=== PATIENT | female | born 1965 ===

== ENCOUNTER 2020-08-24 09:20 | Emergency (ER) | payer BC ==
--- NOTE | 2020-08-24 09:22 | EDM.PDOC ---
ED HPI GENERAL MEDICAL PROBLEM - General Stated Complaint: back pian and rash Time Seen by Provider: 08/24/20 09:21 Source of Information: Reports: Patient History Limitations: Reports: No Limitations - History of Present Illness INITIAL COMMENTS - FREE TEXT/NARRATIVE: 54-year-old female no past medical history presents for back pain and rash. Patient states that for the last 4 days she has had what feels like a pulled muscle pain in her left middle back. It radiates to her side but not her abdomen. Yesterday she noted a couple of lesions on the back that are red and painful to touch. Her pain is worse when she is bending or touching the skin. She denies any hematuria, dysuria, chest pain, shortness of breath, abdominal pain, nausea, vomiting, fevers. She denies any history of heavy lifting or injury. She has been taking muscle relaxants that help her sleep but do not particularly help the pain. back Pain Score (Numeric/FACES): 3 - Related Data Allergies Allergy/AdvReac Type Severity Reaction Status Date / Time No Known Allergies Allergy Verified 08/24/20 09:34 Home Meds: Home Meds Acyclovir 800 mg PO ASDIRECTED 7 Days #35 tablet 08/24/20 [Rx] oxyCODONE HCl/Acetaminophen [Percocet 10-325 mg Tablet] 0.5 - 1 each PO Q4H #18 tablet 08/24/20 [Rx] ED ROS GENERAL - Review of Systems Review Of Systems: Comprehensive ROS is negative, except as noted in HPI. ED EXAM, GENERAL - Physical Exam Exam: See Below Exam Limited By: No Limitations General Appearance: Alert, WD/WN, No Apparent Distress Ears: Hearing Grossly Normal Throat/Mouth: Normal Voice, No Airway Compromise Head: Atraumatic, Normocephalic Neck: Normal Inspection, Supple Respiratory/Chest: No Respiratory Distress, Lungs Clear, Normal Breath Sounds, No Accessory Muscle Use Cardiovascular: Normal Peripheral Pulses, Regular Rate, Rhythm Back Exam: Normal Inspection, Other (a few scattered lesions on left middle back that are erythematous, blanching, one with a couple of small blistering/vesicular lesions). No: Vertebral Tenderness Extremities: Normal Inspection Neurological: Alert, Normal Cognition, Normal Gait Psychiatric: Normal Affect, Normal Mood Skin Exam: Warm, Dry, Intact, Normal Color Course - Vital Signs Last Recorded V/S: Last Vital Signs Temp 96.6 F L 08/24/20 09:29 Pulse 108 H 08/24/20 09:29 Resp 17 08/24/20 09:29 BP 131/80 08/24/20 09:29 Pulse Ox 97 08/24/20 09:29 - Orders/Labs/Meds Meds: Medications Discontinued Medications Generic Name Dose Route Start Last Admin Trade Name John PRN Reason Stop Dose Admin Acyclovir 800 mg 08/24/20 09:47 Acyclovir 200 Mg Cap PO 08/24/20 09:48 ONETIME ONE Oxycodone/Acetaminophen 1 tab 08/24/20 09:47 Acetaminophen/Oxycodone 325-10 Mg Tab PO 08/24/20 09:48 ONETIME ONE - Re-Assessments/Exams Free Text/Narrative Re-Assessment/Exam: 08/24/20 09:53 Patient symptoms are most consistent with shingles infection. There is some diagnostic uncertainty as her clinical picture does not 100% fit with shingles infection. She has never had shingles in the past but she did have chickenpox as a child. Explained to patient that we will treat for shingles infection with antivirals and pain medication but that if symptoms are worsening that she should follow-up either back in the emergency department or with a primary care physician for reassessment. Discussed doing urine studies to look for hematuria to rule out kidney stone but patient declines. Departure - Departure Time of Disposition: 09:53 Disposition: Home, Self-Care 01 Condition: Good Clinical Impression: Shingles Qualifiers: Herpes zoster complications: without complications Qualified Code(s): B02.9 - Zoster without complications - Discharge Information Prescriptions: Acyclovir 800 mg PO ASDIRECTED 7 Days #35 tablet oxyCODONE HCl/Acetaminophen [Percocet 10-325 mg Tablet] 0.5 - 1 each PO Q4H #18 tablet Instructions: Shingles Additional Instructions: Your symptoms seem most consistent with a shingles infection. There is no test that we run in the emergency department to confirm this so there is some diagnostic uncertainty. I think it is koch to treat you with pain medication as well as antivirals and see if symptoms get better. If symptoms or not getting better or if the pain is worsening despite pain medication then you should either follow-up with your primary care physician or come back to the emergency department for reassessment. The following information is given to patients seen in the emergency department who are being discharged to home. This information is to outline your options for follow-up care. We provide all patients seen in our emergency department with a follow-up referral. The need for follow-up, as well as the timing and circumstances, are variable depending upon the specifics of your emergency department visit. If you don't have a primary care physician on staff, we will provide you with a referral. We always advise you to contact your personal physician following an emergency department visit to inform them of the circumstance of the visit and for follow-up with them and/or the need for any referrals to a consulting specialist. The emergency department will also refer you to a specialist when appropriate. This referral assures that you have the opportunity for follow-up care with a specialist. All of these measure are taken in an effort to provide you with opt imal care, which includes your follow-up. Under all circumstances we always encourage you to contact your private physician who remains a resource for coordinating your care. When calling for follow-up care, please make the office aware that this follow-up is from your recent emergency room visit. If for any reason you are refused follow-up, please contact the [facility] Emergency Department at and asked to speak to the emergency department charge nurse. Please follow up with your primary care physician. If you do not have a primary care physician, see below: [facility] [address] [place] [id number] [facility] [address] [place] [address] [facility] [address] [place] [id number] Sepsis Event Note (ED) - Focused Exam Vital Signs: Vital Signs Temp Pulse Resp BP Pulse Ox 08/24/20 09:29 96.6 F L 108 H 17 131/80 97
[2020-08-24] MEDS ORDERED: Acyclovir 200 MG Cap PO ONE (09:47)
[2020-08-24] MEDS ORDERED: Acetaminophen/oxyCODONE 325-10 MG Tab PO ONE (09:47)
== END 2020-08-24 10:05 | disposition home or self-care (01) ==
LOC: MW.ED 09:20
DX: B02.9 Zoster without complications (principal); M54.9 Dorsalgia, unspecified
CPT/HCPCS: 99282; A9270